=== PATIENT | male | born 1985 | race Caucasian/White ===

== ENCOUNTER 2020-06-01 06:47 | Emergency (ER) | payer MEDICAID ==
[~2020-06-01] VITALS: Ht 167.6 cm; Wt 77.1 kg
[2020-06-01 06:51] VITALS: BP 124/79
--- NOTE | 2020-06-01 06:51 | NUR ---
ED Nurse Note: pt biba from police station after pt became highly combative and aggressive during questioning by [employer]. [employer] suspect pt ingested unknown drug. Pt given Versed 5mg by blood bank custodian. Upon arrival, pt is sedated and asleep, aao x 0, HR elevated, SPO2 98% RA, RR 16. Pt placed in gown and on cardiac rn. IV line initiated, blood drawn and sent to lab. Urine sent to lab via straight catherter per ERMD. Awaiting ERMD at bedside. Awaiting further orders.
--- NOTE | 2020-06-01 06:52 | NUR ---
ED Nurse Note: Per EMT, pt HIV positive. ERMD notified.
--- NOTE | 2020-06-01 07:07 | NUR ---
ED Nurse Note: all medications administered, pt tolerated well no ss of distress noted. will continue to monitor.
--- NOTE | 2020-06-01 07:13 | NUR ---
HAND-OFF: Report given to CHARLES Gipson.
[2020-06-01 07:14] LABS: HEMATOCRIT 36.3 % (42.0-52.0); MEAN CORPUSCULAR VOLUME 81 FL (80-99); PLATELET COUNT 214 K/UL (150-450); RED BLOOD COUNT 4.47 M/UL (4.70-6.10); RED CELL DISTRIBUTION WIDTH 13.3 % (11.6-14.8); WHITE BLOOD COUNT 2.7 K/UL (4.8-10.8)
--- NOTE | 2020-06-01 07:14 | NUR ---
ED Nurse Note: Received patient in bed, patient asleep, patient on a school bus monitor.
[2020-06-01 07:19] VITALS: BP 108/78
[2020-06-01 07:30] LABS: ANION GAP 10 mmol/L (5-15); BLOOD UREA NITROGEN 15 mg/dL (7-18); CALCIUM 8.7 MG/DL (8.5-10.1); CARBON DIOXIDE 29 MMOL/L (21-32); CHLORIDE 105 MMOL/L (98-107); POTASSIUM 3.1 MMOL/L (3.5-5.1); SODIUM 143 MMOL/L (136-145)
[2020-06-01 07:34] LABS: ALANINE AMINOTRANSFERASE 50 U/L (12-78); ALBUMIN 3.6 G/DL (3.4-5.0); ALBUMIN/GLOBULIN RATIO 0.8 (1.0-2.7); ALKALINE PHOSPHATASE 72 U/L (46-116); ASPARTATE AMINO TRANSFERASE 51 U/L (15-37); BILIRUBIN,TOTAL 0.6 MG/DL (0.2-1.0)
--- NOTE | 2020-06-01 08:08 | Emergency Room Report ---
History of Present Illness General Chief Complaint: Substance Abuse Source: EMS, Law Enforcement Present Illness HPI 35-year-old male presents for agitated behavior. Brought in by EMS. [employer] at bedside. States that when they were questioning patient today he started acting very erratic and agitated started screaming and yelling. Was given Versed by EMS. patient now is drowsy and calm. Spit mask on. Unable to provide any additional history at this time. Unknown psychiatric history. No other aggravating relieving factors. No other associated symptoms Allergies: Coded Allergies: IODINE (Verified Allergy, Unknown, 06/01/20) MORPHINE (Verified Allergy, Unknown, 06/01/20) Uncoded Allergies: PCN (Allergy, Unknown, 06/01/20) COVID-19 Screening Contact w/high risk pt: No Experienced COVID-19 symptoms?: No COVID-19 Testing performed DOVETAIL MACHINE OPERATOR: No Patient History Past Medical History: asthma Past Surgical History: none Pertinent Family History: none Social History: Reports: alcohol use, drug use; Denies: smoking Immunizations: UTD Reviewed Nursing Documentation: PMH: Agreed; PSxH: Agreed Nursing Documentation-PMH Hx Hypertension: Yes Hx Asthma: Yes Review of Systems All Other Systems: limited Physical Exam Vital Signs Date Time Temp Pulse Resp B/P (MAP) Pulse Ox O2 Delivery O2 Flow Rate FiO2 06/01/20 06:41 98 18 124/79 (94) 96 Room Air 06/01/20 06:51 98.8 Sp02 EP Interpretation: reviewed, normal General Appearance: no apparent distress, lethargic Head: normocephalic Eyes: bilateral eye normal inspection, bilateral eye PERRL ENT: normal ENT inspection Neck: normal inspection Respiratory: chest non-tender, lungs clear, normal breath sounds, speaking full sentences Cardiovascular #1: regular rate, rhythm, no edema Gastrointestinal: normal bowel sounds, non tender, soft, non-distended, no guarding, no rebound Rectal: deferred Genitourinary: no CVA tenderness Musculoskeletal: normal inspection Neurologic: other - lethargic Psychiatric: other - lethargic Skin: no rash Lymphatic: normal inspection Medical Decision Making Homeless Attestation I, The treating physician Dr. Henderson, have assessed and agrees that patient is medically stable for discharge to an outpatient disposition. Diagnostic Impression: Primary Impression: Substance abuse ER Course Hospital Course 34 yo M presents to ED for agitated behavior. given versed prior to arrival Differential diagnoses include: Psychosis, EtOH, drug abuse Clinical course patient placed on stretcher. On telemetry monitor. After initial history and physical ordered labs, IV fluids, UTox Labs reviewed-electrolytes okay, no leukocytosis, hemoglobin/hematocrit stable, tox panel + for multilple substances Patient observed in ED. On telemetry monitor. Vitals stable. Protecting airway. Is now alert oriented x3. Agitated and combative. Screaming at nursing. Security is called to escort patient from hospital. IV removed. Homeless checklist completed. Safe for discharge for close outpatient follow-up i. I feel this is a highly complex case requiring extensive working including EKG/Rhythm strip, Xray/CT/US, Blood/urine lab work, repeat exams while in ED, and administration of strong opiates/narcotics for pain control, admission to hospital or close patient follow up. Diagnosis -drug abuse Stable and discharged to home. Followup with PMD. Return to ED if symptoms recur or worsen Labs Test 06/01/20 06:50 White Blood Count 2.7 K/UL (4.8-10.8) Red Blood Count 4.47 M/UL (4.70-6.10) Hemoglobin 12.0 G/DL (14.2-18.0) Hematocrit 36.3 % (42.0-52.0) Mean Corpuscular Volume 81 FL (80-99) Mean Corpuscular Hemoglobin 26.8 PG (27.0-31.0) Mean Corpuscular Hemoglobin Concent 33.0 G/DL (32.0-36.0) Red Cell Distribution Width 13.3 % (11.6-14.8) Platelet Count 214 K/UL (150-450) Mean Platelet Volume 5.3 FL (6.5-10.1) Neutrophils (%) (Auto) % (45.0-75.0) Lymphocytes (%) (Auto) % (20.0-45.0) Monocytes (%) (Auto) % (1.0-10.0) Eosinophils (%) (Auto) % (0.0-3.0) Basophils (%) (Auto) % (0.0-2.0) Differential Total Cells Counted 100 Neutrophils % (Manual) 74 % (45-75) Lymphocytes % (Manual) 18 % (20-45) Monocytes % (Manual) 6 % (1-10) Eosinophils % (Manual) 1 % (0-3) Basophils % (Manual) 1 % (0-2) Band Neutrophils 0 % (0-8) Platelet Estimate Adequate Platelet Morphology Normal Red Blood Cell Morphology Normal Sodium Level 143 MMOL/L (136-145) Potassium Level 3.1 MMOL/L (3.5-5.1) Chloride Level 105 MMOL/L (98-107) Carbon Dioxide Level 29 MMOL/L (21-32) Anion Gap 10 mmol/L (5-15) Blood Urea Nitrogen 15 mg/dL (7-18) Creatinine 1.0 MG/DL (0.55-1.30) Estimat Glomerular Filtration Rate > 60 mL/min (>60) Glucose Level 102 MG/DL (74-106) Calcium Level 8.7 MG/DL (8.5-10.1) Total Bilirubin 0.6 MG/DL (0.2-1.0) Aspartate Amino Transf (AST/SGOT) 51 U/L (15-37) Alanine Aminotransferase (ALT/SGPT) 50 U/L (12-78) Alkaline Phosphatase 72 U/L (46-116) Total Protein 8.2 G/DL (6.4-8.2) Albumin 3.6 G/DL (3.4-5.0) Globulin 4.6 g/dL Albumin/Globulin Ratio 0.8 (1.0-2.7) Salicylates Level 0.9 ug/mL (2.8-20) Urine Opiates Screen Negative (NEGATIVE) Acetaminophen Level < 2 MCG/ML (10-30) Urine Barbiturates Screen Negative (NEGATIVE) Phencyclidine (PCP) Screen Negative (NEGATIVE) Urine Amphetamines Screen Positive (NEGATIVE) Urine Benzodiazepines Screen Positive (NEGATIVE) Urine Cocaine Screen Negative (NEGATIVE) Urine Marijuana (THC) Screen Negative (NEGATIVE) Serum Alcohol < 3 mg/dL Last Vital Signs Date Time Temp Pulse Resp B/P (MAP) Pulse Ox O2 Delivery O2 Flow Rate FiO2 06/01/20 07:19 98.8 94 23 108/78 99 Room Air Status: improved Disposition: HOME, SELF-CARE Condition: Stable Referrals: NOT CHOSEN IPA/,REFERRING (PCP) Erik Henderson MD Jun 01, 2020 08:08
[2020-06-01 13:00] VITALS: BP 115/72
--- NOTE | 2020-06-01 13:00 | NUR ---
ED Nurse Note: patient is now awake and alert ambulatory steady gait. patient at first did not want to IV to be removed for discharge. RN explained that IV needs to be taken out, but patient refused and became agitated, verbally abusive, being combative. Security was called. patient ambulated to restroom and voided.
--- NOTE | 2020-06-01 13:10 | NUR ---
ED Nurse Note: Dr. Henderson at bedside. IV removed without complication.
--- NOTE | 2020-06-01 13:40 | NUR ---
Homeless Discharge: Patient is being discharged from medical care. Awake, alert and oriented x3. After care instructions, including referral to community resources were given. Patient verbalized understanding of After care instructions; at this time patient does not request medications, equipment or placement. Patient signed patient consent in the medical record for patient destination upon discharge. All medical devices such as IV and ID band were removed. Patient ambulated out with all personal belongings with steady gait.
[2020-06-01 13:55] VITALS: BP 115/72
== END 2020-06-01 13:55 | disposition home or self-care (01) ==
LOC: EDBD 06:47 → EMR 07:05 → EDBD 07:05 → EMR 13:55
DX: F19.10 Other psychoactive substance abuse, uncomplicated (principal); I10 Essential (primary) hypertension; Z88.0 Allergy status to penicillin; Z88.6 Allergy status to analgesic agent
CPT/HCPCS: 36415; 80053; 80307; 85007; 85025; 96360; G0480; G0481; J7030; Z7502; 99284